=== PATIENT | female | born 1975 | race American Indian/Alaskan Native ===

== ENCOUNTER 2018-08-05 11:49 | Emergency (ER) | payer SELFPAY ==
--- NOTE | 2018-08-05 13:16 | Emergency Department Report ---
HPI - General Chief Complaint: Extremity Injury, Upper Time Seen by Provider: 08/05/18 13:09 - HPI HPI: 42-year-old female presents to the emergency department with complaint of pain to the right forearm, wrist and hand after she put her arm down awkwardly last night on the bed and accidentally ended up bearing all of her weight on that extremity. Since that time she has had some swelling and discomfort. She is able to move the fingers, hand and wrist but has a little bit of discomfort with it. She tried some Tylenol for her symptoms with some improvement. She is right-hand dominant. She has a past medical history of hypertension. ED Past Medical Hx - Past Medical History Previous Medical History?: No Hx Hypertension: Yes Hx Congestive Heart Failure: No Hx Diabetes: No Hx Asthma: No Hx COPD: No - Surgical History Past Surgical History?: Yes Additional Surgical History: Dental surgery - Social History Smoking Status: Current Every Day Smoker Substance Use Type: Alcohol, Marijuana - Medications Home Medications: Home Medications Medication Instructions Recorded Confirmed Last Taken Type Acetaminophen [Acetaminophen TAB] 325 mg PO Q6HR PRN 07/24/14 07/24/14 07/23/14 History Ibuprofen [Motrin 200 MG tab] 200 mg PO Q6H PRN 07/24/14 07/24/14 07/23/14 History Clindamycin [Clindamycin CAP] 300 mg PO Q6H #42 capsule 07/26/14 Unknown Rx Promethazine [Phenergan SUPPOS] 25 mg [place] Q6H PRN #4 supp.rect 07/26/14 Unknown Rx Ondansetron [Zofran Odt] 4 mg PO Q6H #14 tab.rapdis 11/21/14 Unknown Rx ED Review of Systems ROS: Stated complaint: RT ARM INJURY Other details as noted in HPI Comment: All other systems reviewed and negative Constitutional: denies: chills, fever Eyes: denies: eye pain, eye discharge, vision change ENT: denies: ear pain, throat pain Respiratory: denies: cough, shortness of breath, wheezing Cardiovascular: denies: chest pain, palpitations Gastrointestinal: denies: abdominal pain, nausea, diarrhea Genitourinary: denies: urgency, dysuria, discharge Musculoskeletal: joint swelling, arthralgia Skin: denies: rash, lesions Neurological: denies: headache, weakness, paresthesias Physical Exam - Physical Exam Physical Exam: GENERAL: The patient is well-developed well-nourished. HENT: Normocephalic. Atraumatic. Patient has moist mucous membranes. EYES: Extraocular motions are intact. NECK: Supple. Trachea is midline. CHEST/LUNGS: Clear to auscultation. There is no respiratory distress noted. HEART/CARDIOVASCULAR: Regular. There is no tachycardia. There is no murmur. ABDOMEN: Abdomen is soft, nontender. Patient has normal bowel sounds. There is no abdominal distention. SKIN: Skin is warm and dry. NEURO: The patient is awake, alert, and oriented. The patient is cooperative. The patient has no focal neurologic deficits. The patient has normal speech. MUSCULOSKELETAL: There is tenderness to palpation to the right upper extremity from the distal forearm through the hand but no obvious deformity. Capillary refill less than 2 seconds and radial pulses +2 over 4 to the affected right upper extremity. ED Medical Decision Making - Radiology Data Radiology results: image reviewed interpreted by me: X-ray of the right forearm and right hand do not show any fractures, dislocations or any acute process. - Medical Decision Making Patient has some pain and swelling to the right forearm, wrist and hand after she accidentally twisted it last night. It is hard for me to appreciate any significant swelling but she does have some discomfort. She appears neurovascularly intact. X-rays of the forearm and hand do not show any fractures, dyscrasias or any acute process. The patient was placed in a volar splint and has been given a referral for an orthopedist. She will return to the ER with any worsening of her symptoms or any acute distress. - Differential Diagnosis fracture, dislocation, sprain, strain Critical Care Time: No Critical care attestation.: If time is entered above; I have spent that time in minutes in the direct care of this critically ill patient, excluding procedure time. ED Disposition Clinical Impression: Right hand pain, Right wrist pain, Right forearm pain Disposition: TO HOME OR SELFCARE Is pt being admited?: No Condition: Stable Instructions: Wrist Injury (ED), Arthralgia (ED) Additional Instructions: Please follow-up with your primary care physician in the next few days. I have given you a referral for a local orthopedist, Dr. Bourgeois, in case you need to follow-up regarding your hand, wrist and arm pains. You can use Tylenol every 4 hours and ibuprofen every 6 hours, using weight-based dosing, as needed for discomfort. Return to the emergency Department with any worsening of your symptoms or any acute distress. Referrals: PRIMARY CARE, [Primary Care Provider] - 3-5 Days CHRIS BOURGEOIS MD [Staff Physician] - 3-5 Days Forms: Work/School Release Form(ED) Time of Disposition: 14:04
--- NOTE | 2018-08-05 13:56 | XRay Report ---
RIGHT FOREARM RADIOGRAPHS INDICATION: Right distal forearm pain post injury. COMPARISON: None similar. FINDINGS: AP and lateral right forearm radiographs demonstrate normal bones and soft tissues. Included elbow and wrist articulations also appear grossly within normal limits. CONCLUSION: No acute radiographic abnormality. Thank you for the opportunity to participate in this patient's care.
--- NOTE | 2018-08-05 13:59 | XRay Report ---
RIGHT HAND RADIOGRAPHS INDICATION: Right hand pain. COMPARISON: None similar. FINDINGS: AP, lateral and oblique right hand radiographs demonstrate normal bones and joints. A subtle 0.8 cm distal forearm anterolateral soft tissue nodule not excluded. CONCLUSION: No acute right hand bony abnormality, as described. Please correlate. Thank you for the opportunity to participate in this patient's care.
[2018-08-05 15:20] VITALS: BP 136/84
== END 2018-08-05 14:16 | disposition home or self-care (01) ==
LOC: ED 11:49
DX: R22.31 Localized swelling, mass and lump, right upper limb (principal); M79.631 Pain in right forearm; M25.531 Pain in right wrist; I10 Essential (primary) hypertension; F17.200 Nicotine dependence, unspecified, uncomplicated; F12.10 Cannabis abuse, uncomplicated; Z79.899 Other long term (current) drug therapy
CPT/HCPCS: 99283

== ENCOUNTER 2019-07-18 11:25 | Emergency (ER) | payer SELFPAY ==
[2019-07-18] MEDS ORDERED: ZOFRAN ODT PO ONE (11:55)
[2019-07-18] MEDS ORDERED: PEPCID PO ONE (11:55)
--- NOTE | 2019-07-18 12:27 | Event Note ---
ED Screening Note Date of service: 07/18/19 Time: 12:25 ED Screening Note: 43 y o female with no PMH presents with mid sternal cp x 1 month pt describes as burning pain with nausea intermittently denies all other sx This initial assessment/diagnostic orders/clinical plan/treatment(s) is/are subj ect to change based on patients health status, clinical progression and re- assessment by fellow clinical providers in the ED. Further treatment and workup at subsequent clinical providers discretion. Patient/guardian urged not to elope from the ED as their condition may be serious if not clinically assessed and managed. Initial orders include: EKG was completed pepcid and zofran given in triage
--- NOTE | 2019-07-18 13:45 | Emergency Department Report ---
ED General Adult HPI - General Chief complaint: Chest Pain Stated complaint: CHEST PAIN Time Seen by Provider: 07/18/19 11:48 Source: patient Mode of arrival: Ambulatory Limitations: No Limitations - History of Present Illness Initial comments: Patient presents to the emergency department with a chief complaint of diffuse chest pain for the last month. Patient describes the pain as a burning sensation and denies any shortness of breath. Patient states the pain has been constant in nature for the last month. Patient does endorse eating garlic goes daily while at work. Patient denies any radiation of her chest pain. She does endorse that burping makes it better -: Sudden Location: chest Radiation: non-radiation Severity scale (0 -10): 3 Quality: burning Consistency: constant Improves with: none Worsens with: none Associated Symptoms: denies other symptoms Treatments Prior to Arrival: none - Related Data Home Medications Medication Instructions Recorded Confirmed Last Taken Acetaminophen [Acetaminophen TAB] 325 mg PO Q6HR PRN 07/24/14 07/24/14 07/23/14 Ibuprofen [Motrin 200 MG tab] 200 mg PO Q6H PRN 07/24/14 07/24/14 07/23/14 Previous Rx's Medication Instructions Recorded Last Taken Type Clindamycin [Clindamycin CAP] 300 mg PO Q6H #42 capsule 07/26/14 Unknown Rx Promethazine [Phenergan SUPPOS] 25 mg [place] Q6H PRN #4 supp.rect 07/26/14 Unknown Rx Ondansetron [Zofran Odt] 4 mg PO Q6H #14 tab.rapdis 11/21/14 Unknown Rx Allergies Allergy/AdvReac Type Severity Reaction Status Date / Time No Known Allergies Allergy Verified 08/05/18 11:55 ED Review of Systems ROS: Stated complaint: CHEST PAIN Other details as noted in HPI Comment: All other systems reviewed and negative Constitutional: denies: chills, fever Eyes: denies: eye pain, eye discharge, vision change ENT: denies: ear pain, throat pain Respiratory: denies: cough, shortness of breath, wheezing Cardiovascular: chest pain. denies: palpitations Endocrine: no symptoms reported Gastrointestinal: denies: abdominal pain, nausea, diarrhea Genitourinary: denies: urgency, dysuria, discharge Musculoskeletal: denies: back pain, joint swelling, arthralgia Skin: denies: rash, lesions Neurological: denies: headache, weakness, paresthesias Psychiatric: denies: anxiety, depression Hematological/Lymphatic: denies: easy bleeding, easy bruising ED Past Medical Hx - Past Medical History Previous Medical History?: No Hx Hypertension: Yes Hx Congestive Heart Failure: No Hx Diabetes: No Hx Asthma: No Hx COPD: No - Surgical History Past Surgical History?: Yes Additional Surgical History: Dental surgery. Tubal ligation - Social History Smoking Status: Current Every Day Smoker Substance Use Type: Alcohol - Medications Home Medications: Home Medications Medication Instructions Recorded Confirmed Last Taken Type Acetaminophen [Acetaminophen TAB] 325 mg PO Q6HR PRN 07/24/14 07/24/14 07/23/14 History Ibuprofen [Motrin 200 MG tab] 200 mg PO Q6H PRN 07/24/14 07/24/14 07/23/14 History Clindamycin [Clindamycin CAP] 300 mg PO Q6H #42 capsule 07/26/14 Unknown Rx Promethazine [Phenergan SUPPOS] 25 mg [place] Q6H PRN #4 supp.rect 07/26/14 Unknown Rx Ondansetron [Zofran Odt] 4 mg PO Q6H #14 tab.rapdis 11/21/14 Unknown Rx ED Physical Exam - General Limitations: No Limitations General appearance: alert, in no apparent distress - Head Head exam: Present: atraumatic, normocephalic - Eye Eye exam: Present: normal appearance, PERRL, EOMI - ENT ENT exam: Present: mucous membranes moist - Neck Neck exam: Present: normal inspection - Respiratory Respiratory exam: Present: normal lung sounds bilaterally. Absent: respiratory distress - Cardiovascular Cardiovascular Exam: Present: regular rate, normal rhythm. Absent: systolic murmur, diastolic murmur, rubs, gallop - GI/Abdominal GI/Abdominal exam: Present: soft, normal bowel sounds. Absent: distended, tenderness - Extremities Exam Extremities exam: Present: normal inspection - Back Exam Back exam: Present: normal inspection - Neurological Exam Neurological exam: Present: alert, oriented X3, CN II-XII intact. Absent: motor sensory deficit - Psychiatric Psychiatric exam: Present: normal affect, normal mood - Skin Skin exam: Present: warm, dry, intact, normal color. Absent: rash ED Course Vital Signs 07/18/19 11:44 Temperature 98.4 F Pulse Rate 84 Respiratory 18 Rate Blood Pressure 133/83 O2 Sat by Pulse 99 Oximetry ED Medical Decision Making - EKG Data -: EKG Interpreted by Me EKG shows normal: sinus rhythm Rate: normal - Medical Decision Making Patient left against medical advice even after explaining my concern for her chest pain for a month and need for further follow up Patient refuses laboratory evaluation or x-rays Critical care attestation.: If time is entered above; I have spent that time in minutes in the direct care of this critically ill patient, excluding procedure time. ED Disposition Clinical Impression: Chest pain Disposition: DC-07 LEFT AGAINST MED ADVICE Is pt being admited?: No Does the pt Need Aspirin: No Condition: Stable Instructions: Chest Pain (ED) Referrals: PRIMARY CARE,MD [Primary Care Provider] - 3-5 Days [facility] [Provider Group] - 3-5 Days [facility] [Provider Group] - 3-5 Days Forms: AMA Form, Work/School Release Form(ED)
[2019-07-18 14:55] VITALS: BP 130/84
== END 2019-07-18 14:15 | disposition left against medical advice (07) ==
LOC: ED 11:25
DX: R07.89 Other chest pain (principal); I10 Essential (primary) hypertension; F17.200 Nicotine dependence, unspecified, uncomplicated; Z98.890 Other specified postprocedural states; Z98.51 Tubal ligation status; Z79.899 Other long term (current) drug therapy
CPT/HCPCS: 93005; 93010; 99282; Q0162

== ENCOUNTER 2022-05-06 10:14 | Emergency (ER) | payer SELFPAY | END 2022-05-06 10:45 | disposition left against medical advice (07) | LOC: ED 10:14 | DX: R07.0 Pain in throat (principal); Z53.21 Procedure and treatment not carried out due to patient leaving prior to being seen by health care provider ==